=== PATIENT | female | born 1970 | race Caucasian/White ===

== ENCOUNTER 2019-03-13 13:31 | Emergency (ER) | payer MEDICARE, MEDICAID ==
[~2019-03-13] VITALS: Ht 160 cm; Wt 55.9 kg
[2019-03-13] MEDS ORDERED: INCR1INH (13:44)
[2019-03-13] MEDS ORDERED: ADV500INH (13:44)
[2019-03-13] MEDS ORDERED: TRAM50TA2 (13:44)
[2019-03-13] MEDS ORDERED: IBUP80TA (13:44)
[2019-03-13] MEDS ORDERED: ALPR0.25 (13:44)
[2019-03-13] MEDS ORDERED: ATOR1TAB21 (13:44)
[2019-03-13] MEDS ORDERED: KETOROLAC TROMETHAMINE 10 MG TAB PO ONE (16:00)
--- NOTE | 2019-03-13 16:15 | REP ---
Lumbar spine five views: There are no comparisons. Vertebral body heights, interspacing alignment are normal. There is no spondylolysis or spondylolisthesis. The pedicles and facets are unremarkable. The sacroiliac articulations are unremarkable. Impression: Negative lumbar spine Electronically Signed by Gallo Olsen MD 03/13/2019 04:06 P
--- NOTE | 2019-03-13 17:12 | REP ---
AP pelvis: Mineralization is normal. There is no pelvic fracture. The sacroiliac articulations are unremarkable. The hip articulations are unremarkable. There are calcifications inferiorly on the right, likely phleboliths. Impression: Essentially negative AP pelvis. Right hip two views: There is no fracture or dislocation. Mineralization and joint space are normal. There are no calcifications or foreign bodies. Impression: Negative right hip. Electronically Signed by Gallo Olsen MD 03/13/2019 05:04 P
[2019-03-13] MEDS ORDERED: CYCL5TAB PO (17:45)
[2019-03-13 17:56] VITALS: BP 152/73
== END 2019-03-13 17:59 | disposition home or self-care (01) ==
LOC: M ED 13:31
DX: M25.551 Pain in right hip (principal); W54.0XXD Bitten by dog, subsequent encounter; J45.909 Unspecified asthma, uncomplicated; E78.5 Hyperlipidemia, unspecified; F41.9 Anxiety disorder, unspecified; Z88.0 Allergy status to penicillin; F17.210 Nicotine dependence, cigarettes, uncomplicated; Z79.899 Other long term (current) drug therapy; Z79.51 Long term (current) use of inhaled steroids; Z79.1 Long term (current) use of non-steroidal anti-inflammatories (NSAID)

== ENCOUNTER → 2022-07-29 | Outpatient (REF) | payer OTHER, MEDICAID ==
[~2022-07-29] MED LIST: ADV500INH; ALPR0.25; ATOR1TAB21; CYCL5TAB PO; IBUP80TA; INCR1INH; TRAM50TA2
[2022-07-29 14:33] LABS: PHOSPHORUS LEVEL 4.8 MG/DL (2.5-4.9); THYROID STIMULATING HORMONE 1.347 uIU/ML (0.55-4.78)
[2022-07-29 14:34] LABS: HEPATITIS B SURFACE ANTIBODY POSITIVE (POSITIVE)
[2022-07-29 14:35] LABS: IRON (FE) 36 UG/DL (50-170); RHEUMATOID FACTOR QUANT 43.9 IU/ML (<14); VITAMIN B12 LEVEL 329 PG/ML (211-911)
[2022-07-29 14:45] LABS: HEPATITIS B SURFACE ANTIGEN NEGATIVE (NEGATIVE)
[2022-07-29 15:06] LABS: HEPATITIS C VIRUS ABY INDEX 0.1 INDEX (<0.8)
[2022-07-29 15:09] LABS: CPK CREATINE PHOSPHOKINASE 50 U/L (34-145)
== END ==
LOC: M SFHCRHEU 10:05
PROVIDERS: ATTEND Internal Medicine
DX: M79.10 Myalgia, unspecified site (principal); R76.8 Other specified abnormal immunological findings in serum; Z79.899 Other long term (current) drug therapy